=== PATIENT | female | born 1970 | race Caucasian/White ===

== ENCOUNTER 2022-02-06 16:28 | Emergency (ER) | payer MEDICARE, OTHER ==
[~2022-02-06 16:28] MED LIST: CLEOCIN HCL300 MG PO; IBUPROFEN600 MG PO; MEDROL DOSEPAK 24 MG PO; NORCO 7.5-3251 EACH PO; SILVADENE20 GM TP; TRAMADOL HCL50 MG PO
== END 2022-02-06 16:59 | disposition left against medical advice (07) ==
LOC: ER1 16:28
DX: Z53.21 Procedure and treatment not carried out due to patient leaving prior to being seen by health care provider (principal)